=== PATIENT | female | born 1995 | race Caucasian/White ===

== ENCOUNTER 2022-06-08 02:03 | Outpatient (CLI) | payer BC, SELFPAY ==
[2022-06-08 14:52] LABS: Panorama Kit Sent via Fed Ex
[2022-06-08 15:03] LABS: Abs Immature Grans 0.05 10^3/uL (0.0-0.06); Absolute Basophil Count 0.01 10^3/uL (0.0-0.2); Absolute Eosinophil Count 0.05 10^3/uL (0.0-0.7); Absolute Lymphocyte Count 1.67 10^3/uL (1.2-3.4); Absolute Monocyte Count 0.44 10^3/uL (0.1-0.8); Absolute Neutrophil Count 5.97 10^3/uL (1.2-6.7); Basophils % 0.1; Eosinophils % 0.6; HCT 36.8 % (36.0-46.0); HGB 12.6 g/dL (11.2-15.7); Immature Grans % 0.6; Lymphocytes % 20.4; MCHC 34.2 % (32.0-36.0); MCV 85 fL (80-95); MPV 9.5 fL (8.0-11.0); Monocytes % 5.4; Neutrophils % 72.9; Platelet Count 304 10^3/uL (130-400); RBC 4.35 10^6/uL (3.93-5.22); RDW 12.5 % (11.7-14.6); RDW-SD 38.3 fL; WBC 8.19 10^3/uL (4.4-10.8)
[2022-06-08 15:08] LABS: Glucose,1 Hr (Glucola) 130 mg/dL (80-140)
[2022-06-09 09:44] LABS: Hepatitis C Ab w Rflx HCV PCR Negative (Negative)
[2022-06-09 09:51] LABS: HIV-1/2 Ag & Ab Screen Negative (Negative)
[2022-06-09 10:37] LABS: Hepatitis B Surface Ag Negative (Negative); Rubella IgG Ab (UVM) Positive (See Note); Varicella IgG Antibody Positive (See Note)
[2022-06-09 19:41] LABS: Syphilis IgG w/Reflex Nonreactive (Nonreactive)
[2022-07-03 15:04] LABS: Result Summary NEGATIVE; Specimen WB Whole Blood
== END 2022-06-08 02:04 | disposition home or self-care (01) ==
LOC: LBO 02:03
PROVIDERS: Advanced Practice Midwife; Visit Provider Advanced Practice Midwife
DX: Z34.82 Encounter for supervision of other normal pregnancy, second trimester
CPT/HCPCS: 36415; 81220; 81222; 82950; 86787; 86803; 86850; 86900; 86901; 87340; 87389; 84443; 85025; 86762; 86780

== ENCOUNTER 2022-06-08 17:19 | Outpatient (REF) | payer BC, SELFPAY ==
[2022-06-08 17:25] LABS: *AMPHETAMINES SCREEN URINE Negative (Negative); *BARBITURATES SCREEN URINE Negative (Negative); *BENZODIAZEPINES SCREEN URINE Negative (Negative); Cannabinoids THC Negative (Negative); Cocaine Screen,Urine Negative (Negative); METHADONE URINE SCREEN Negative (Negative); OPIATES URINE SCREEN Negative (Negative)
[2022-06-08 17:27] LABS: Tricyclic Antidepressants Negative (Negative)
[2022-06-10 12:20] LABS: Chlamydia Result Negative (Negative); GC Result Negative (Negative)
[2022-06-17 16:33] LABS: Buprenorphine Negative ng/mL (Cutoff: 5.0); Norbuprenorphine Negative ng/mL (Cutoff: 2.5)
== END 2022-06-08 17:20 | disposition home or self-care (01) ==
LOC: LBN 17:19
PROVIDERS: Visit Provider Advanced Practice Midwife
DX: Z34.91 Encounter for supervision of normal pregnancy, unspecified, first trimester (principal)
CPT/HCPCS: 80307; 80348; 87491; 87591; 87086

== ENCOUNTER 2022-09-04 02:33 | Outpatient (CLI) | payer BC, MEDICAID, SELFPAY ==
[2022-09-04 07:22] LABS: HCT 36.1 % (36.0-46.0); HGB 12.3 g/dL (11.2-15.7); MCHC 34.1 % (32.0-36.0); MCV 88 fL (80-95); MPV 9.5 fL (8.0-11.0); Platelet Count 283 10^3/uL (130-400); RDW 13.5 % (11.7-14.6); RDW-SD 43.7 fL; WBC 10.77 10^3/uL (4.4-10.8)
[2022-09-04 08:08] LABS: ALT 28 U/L (14-59); AST 19 U/L (15-37); Albumin 2.6 g/dL (3.4-5.0); Alkaline Phosphatase 84 U/L (46-116); Anion Gap 7.6 mmol/L (3-11); BUN 8 mg/dL (7-18); Bilirubin, Total 0.2 mg/dL (0.2-1.0); CO2 23.4 mmol/L (21.0-32.0); CREATININE 0.5 mg/dL (0.55-1.02); Calcium 8.7 mg/dL (8.5-10.1); Chloride 106 mmol/L (98-107); Estimated GFR 130.94 (mL/min/1.73m2); Glucose 110 mg/dL (74-106); LDH 173 U/L (81-234); Potassium 3.7 mmol/L (3.5-5.1); Sodium 137 mmol/L (136-145); Total Protein 6.4 g/dL (6.4-8.2); Uric Acid 3.1 mg/dL (2.6-6.0)
== END 2022-09-04 02:34 | disposition home or self-care (01) ==
LOC: LBO 02:33
PROVIDERS: Visit Provider Advanced Practice Midwife
DX: O16.2 Unspecified maternal hypertension, second trimester (principal); Z3A.26 26 weeks gestation of pregnancy
CPT/HCPCS: 36415; 80053; 85027; 83615; 84550

== ENCOUNTER 2022-09-04 09:27 | Outpatient (REF) | payer BC, MEDICAID, SELFPAY ==
[2022-09-04 09:46] LABS: Creatinine,Urine 101.17 mg/dL; PROTEIN 17.8 mg/dL (0.0-11.9)
[2022-09-04 09:53] LABS: Creatinine,24hr Ur 1.42 g/24hr (0.60-1.80); TOTAL PROTEIN,URINE TIMED 249.2 mg/24hr (0.0-149.1); Total Volume 1400 ml
== END 2022-09-04 09:28 | disposition home or self-care (01) ==
LOC: LBN 09:27
PROVIDERS: Visit Provider Advanced Practice Midwife
DX: O16.2 Unspecified maternal hypertension, second trimester (principal); Z3A.26 26 weeks gestation of pregnancy
CPT/HCPCS: 81050; 82570; 84155

== ENCOUNTER 2022-09-18 09:55 | Outpatient (REF) | payer BC, MEDICAID, SELFPAY ==
[2022-09-18 10:02] LABS: HCT 36.5 % (36.0-46.0); HGB 12.4 g/dL (11.2-15.7); MCH 29.9 pg (27.0-33.0); MCV 88 fL (80-95); MPV 9.5 fL (8.0-11.0); Platelet Count 270 10^3/uL (130-400); RBC 4.15 10^6/uL (3.93-5.22); RDW 13.5 % (11.7-14.6); RDW-SD 43.7 fL; WBC 9.48 10^3/uL (4.4-10.8)
[2022-09-18 10:19] LABS: Glucose,1 Hr (Glucola) 172 mg/dL (80-140)
== END 2022-09-18 09:56 | disposition home or self-care (01) ==
LOC: LBN 09:55
PROVIDERS: Advanced Practice Midwife; Visit Provider Advanced Practice Midwife
DX: Z34.93 Encounter for supervision of normal pregnancy, unspecified, third trimester (principal); Z3A.28 28 weeks gestation of pregnancy
CPT/HCPCS: 82950; 85027

== ENCOUNTER 2022-09-25 02:20 | Outpatient (CLI) | payer BC, MEDICAID, SELFPAY ==
[2022-09-25 11:31] LABS: HCT 37.7 % (36.0-46.0); HGB 12.8 g/dL (11.2-15.7); MCH 29.9 pg (27.0-33.0); MCV 88 fL (80-95); MPV 9.2 fL (8.0-11.0); Platelet Count 268 10^3/uL (130-400); RBC 4.28 10^6/uL (3.93-5.22); RDW 13.2 % (11.7-14.6); RDW-SD 42.5 fL; WBC 12.38 10^3/uL (4.4-10.8)
[2022-09-25 13:59] LABS: Glucose 1 Hour 203 mg/dL
[2022-09-25 15:34] LABS: Glucose 3 Hour 154 mg/dL
--- NOTE | 2022-10-02 11:01 | W.DIABETESNO ---
Date of service: 10/02/22 Time of Service: 11:01 Diabetes Note Reason for Visit: gdm NOTE: Met with Dimple and her today. She is 30 weeks and was recently dx with GDM. Blood sugar log in last week all within recommended ranges. Does have low blood sugars AM- often under 70 mg/dl. Diet log indicates irregular meal times, often skips lunch when working. 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 Reviewed macronutrient requirements for third trimester . Provided meal plans and provided contact information if needs further assistance. Time Spent in Nutritional Counseling and Treatment: 20
== END 2022-09-25 02:21 | disposition home or self-care (01) ==
LOC: LBO 02:20
PROVIDERS: Advanced Practice Midwife; Visit Provider Advanced Practice Midwife
DX: Z34.93 Encounter for supervision of normal pregnancy, unspecified, third trimester (principal); Z3A.29 29 weeks gestation of pregnancy
CPT/HCPCS: 36415; 82950; 85027; 82951

== ENCOUNTER 2022-10-13 00:32 | Outpatient (CLI) | payer MEDICAID, SELFPAY ==
--- NOTE | 2022-10-13 07:00 | DI.US_ITS ---
Exam(s) US OB MANNIE WEIGHT EXAM: US OB MANNIE WEIGHT CLINICAL HISTORY: growth and fluid volumE,SING UMB ART,HYPERTENSION,q27.0,o16.2. TECHNIQUE: Transabdominal obstetrical ultrasound was performed. COMPARISON: US POCUS EXAM from 05/02/2022 FINDINGS: There is a single viable intrauterine gestation with cardiac activity identified-161 bpm The fetus is presently in cephalic position . Amniotic fluid: There is a normal amount of amniotic fluid with an MANNIE of 13.5cm. Placental location: The placenta is posterior grade 2,with no evidence of placenta previa. Dating parameters place this at approximately 32 weeks and 3 days gestational age, implying CLAIRE of 12/05/2022. BPD measures 33 weeks and 2 days HC measures 32 weeks and 0 days AC measures 32 weeks and 4 days FL measures 31 weeks and 6 days Estimated weight is 1955 grams-4 pounds, 5 ounces Fetus is at the 50th percentile on the Hadlock scale. IMPRESSION:: Viable 3rd trimester gestation, as described above. DATA REPOSITORY:
== END 2022-11-15 10:17 ==
LOC: DI 00:33 → OBS 11-15 10:10
PROVIDERS: Visit Provider Advanced Practice Midwife
DX: O13.3 Gestational [pregnancy-induced] hypertension without significant proteinuria, third trimester (principal); Q27.0 Congenital absence and hypoplasia of umbilical artery
CPT/HCPCS: 76816

== ENCOUNTER 2022-10-26 09:55 | Outpatient (CLI) | payer MEDICAID, SELFPAY ==
[2022-10-26 10:06] VITALS: BP 137/95; PULSE 90; TEMP 36.9
[2022-10-26 10:24] VITALS: BP 137/95; PULSE 90
--- NOTE | 2022-10-26 10:39 | W.OBNST ---
Date of service: 10/26/22 Time of Service: 10:39 NST Evaluation Reason for NST Reasons for Nonstress Test: GESTATIONAL HYPERTENSION Gestational Age Gestational Age in Weeks and Days: 33 Weeks and 6Days Test and Monitor Explained Test/Monitor Explained: Test Explained, Monitor Explained and Patient Verbalized Understanding Vital Signs Blood Pressure: 137/95 Pulse: 90 Temperature: 98.4 F NST Information Date on Monitor: 10/26/22 Time on Monitor: 10:00 Date off Monitor: 10/26/22 Time off Monitor: 10:32 Total Time on Monitor: 32 NST Interventions: PO Hydration NST Evaluation Patient States Movement: Present FHR Baseline: 130 Variability: Moderate 6-25 bpm Accelerations: 15x15 Decelerations: None NST Results: Reactive Note Ultrasound Done: N/A. NST Note Note: HTN Labs drawn and pending NST Reviewed and Verified by: Laura Javier
[2022-10-26 10:40] VITALS: BP 137/95; PULSE 90; TEMP 36.9
[2022-10-26 11:05] LABS: HGB 12.6 g/dL (11.2-15.7); MCH 29.1 pg (27.0-33.0); MCHC 33.2 % (32.0-36.0); MCV 88 fL (80-95); MPV 10.3 fL (8.0-11.0); Platelet Count 232 10^3/uL (130-400); RBC 4.33 10^6/uL (3.93-5.22); RDW 13.1 % (11.7-14.6); RDW-SD 41.9 fL
[2022-10-26 11:07] VITALS: BP 130/86; PULSE 81
[2022-10-26 11:15] LABS: COMMENT (LAB VIEW ONLY) 58.38 mg/dL
[2022-10-26] MEDS: Acetaminophen 500 MG TAB 1000 MG PO (11:15)
[2022-10-26 11:21] LABS: ALT 20 U/L (14-59); AST 20 U/L (15-37); Albumin 2.4 g/dL (3.4-5.0); Alkaline Phosphatase 146 U/L (46-116); Anion Gap 6.9 mmol/L (3-11); BUN 8 mg/dL (7-18); Bilirubin, Total 0.2 mg/dL (0.2-1.0); CO2 25.1 mmol/L (21.0-32.0); CREATININE 0.7 mg/dL (0.55-1.02); Chloride 104 mmol/L (98-107); Estimated GFR 120.74 (mL/min/1.73m2); Glucose 78 mg/dL (74-106); Potassium 4.1 mmol/L (3.5-5.1); Sodium 136 mmol/L (136-145); Total Protein 6.4 g/dL (6.4-8.2); Uric Acid 3.8 mg/dL (2.6-6.0)
[2022-10-26 13:04] LABS: Hemoglobin A1C 5.1 % (<5.7)
== END 2022-10-26 11:55 | disposition home or self-care (01) ==
LOC: BCD 10:02 → OBS 10:05
PROVIDERS: Visit Provider Advanced Practice Midwife
DX: O16.3 Unspecified maternal hypertension, third trimester (principal); Z3A.33 33 weeks gestation of pregnancy
CPT/HCPCS: 36415; 80053; 85027; 59025; 82565; 83036; 84156; 84550

== ENCOUNTER 2022-10-30 10:09 | Outpatient (CLI) | payer MEDICAID, SELFPAY ==
--- NOTE | 2022-10-30 10:56 | W.OBNST ---
Date of service: 10/30/22 Time of Service: 10:56 NST Evaluation Reason for NST Reasons for Nonstress Test: OTHER, SEE COMMENT Reason for NST Other: Hypertension in 3rd trimester Gestational Age Gestational Age in Weeks and Days: 34 Weeks and 3Days Test and Monitor Explained Test/Monitor Explained: Test Explained, Monitor Explained and Patient Verbalized Understanding Urine Results Urine Protein: Negative Urine Ketones: Negative Urine Glucose: Negative Urine Blood: Negative NST Information Date on Monitor: 10/30/22 Time on Monitor: 10:00 Date off Monitor: 10/30/22 Time off Monitor: 10:31 Total Time on Monitor: 31 NST Interventions: None Contraction Frequency: Irritability NST Evaluation Patient States Movement: Present FHR Baseline: 135 Variability: Moderate 6-25 bpm Accelerations: 15x15 Decelerations: None NST Results: Reactive Note Ultrasound Done: N/A. NST Note NST Reviewed and Verified by: Laura Javier
== END 2022-10-30 10:40 | disposition home or self-care (01) ==
LOC: BCD 10:11 → OBS 10:20
PROVIDERS: Visit Provider Advanced Practice Midwife
DX: O16.3 Unspecified maternal hypertension, third trimester (principal); Z3A.33 33 weeks gestation of pregnancy
CPT/HCPCS: 59025

== ENCOUNTER 2022-11-08 03:48 | Outpatient (CLI) | payer MEDICAID, SELFPAY ==
[2022-11-08 08:48] VITALS: BP 131/84; PULSE 92
[2022-11-08 09:16] VITALS: BP 133/82; PULSE 80
[2022-11-08 09:23] VITALS: BP 131/84; PULSE 92; TEMP 36.4
--- NOTE | 2022-11-08 10:07 | W.OBNST ---
Date of service: 11/08/22 Time of Service: 10:07 NST Evaluation Reason for NST Reasons for Nonstress Test: GESTATIONAL HYPERTENSION Gestational Age Gestational Age in Weeks and Days: 35 Weeks and 5Days Test and Monitor Explained Test/Monitor Explained: Test Explained, Monitor Explained and Patient Verbalized Understanding Vital Signs Blood Pressure: 131/84 Pulse: 92 Temperature: 97.5 F NST Information Date on Monitor: 11/08/22 Time on Monitor: 08:47 Date off Monitor: 11/08/22 Time off Monitor: 09:22 Total Time on Monitor: 35 NST Interventions: None and Notify Provider Contraction Frequency: Occasional NST Evaluation Patient States Movement: Present FHR Baseline: 135 Variability: Moderate 6-25 bpm Accelerations: 15x15 Decelerations: None NST Results: Reactive Note Ultrasound Done: N/A. NST Note Note: Reactive NST. RTO 5 days for NST and BP check. Signs of preeeclampsia reviewed. NST Reviewed and Verified by: Shira Figueredo
[2022-11-08 10:08] VITALS: BP 131/84; PULSE 92; TEMP 36.4
== END 2022-11-08 09:45 | disposition home or self-care (01) ==
LOC: BCD 03:52 → OBS 08:45
PROVIDERS: Visit Provider Advanced Practice Midwife
DX: O13.3 Gestational [pregnancy-induced] hypertension without significant proteinuria, third trimester (principal); Z3A.35 35 weeks gestation of pregnancy
CPT/HCPCS: 59025

== ENCOUNTER 2022-11-14 08:54 | Outpatient (CLI) | payer MEDICAID, SELFPAY ==
[2022-11-14 15:22] VITALS: BP 139/90; PULSE 83; TEMP 36.4
[2022-11-14 15:33] VITALS: BP 139/90; PULSE 83
[2022-11-14 15:52] VITALS: BP 138/84; PULSE 80
[2022-11-14 16:06] LABS: HCT 37.2 % (36.0-46.0); HGB 12.4 g/dL (11.2-15.7); MCH 29.5 pg (27.0-33.0); MCHC 33.3 % (32.0-36.0); MCV 89 fL (80-95); MPV 10.6 fL (8.0-11.0); Platelet Count 232 10^3/uL (130-400); RDW 12.9 % (11.7-14.6); RDW-SD 41.6 fL
[2022-11-14 16:21] LABS: ALT 18 U/L (14-59); AST 17 U/L (15-37); Albumin 2.3 g/dL (3.4-5.0); Alkaline Phosphatase 172 U/L (46-116); Anion Gap 8.9 mmol/L (3-11); BUN 14 mg/dL (7-18); Bilirubin, Total 0.2 mg/dL (0.2-1.0); CO2 22.1 mmol/L (21.0-32.0); CREATININE 0.9 mg/dL (0.55-1.02); Calcium 8.4 mg/dL (8.5-10.1); Chloride 104 mmol/L (98-107); Glucose 157 mg/dL (74-106); Potassium 3.9 mmol/L (3.5-5.1); Sodium 135 mmol/L (136-145); Total Protein 6.4 g/dL (6.4-8.2); Uric Acid 4.4 mg/dL (2.6-6.0)
[2022-11-14 16:26] VITALS: BP 140/90; PULSE 85
[2022-11-14 16:31] LABS: PROTEIN 65.9 mg/dL
--- NOTE | 2022-11-14 16:49 | W.OBNST ---
Date of service: 11/14/22 Time of Service: 16:49 NST Evaluation Reason for NST Reasons for Nonstress Test: GESTATIONAL HYPERTENSION Gestational Age Gestational Age in Weeks and Days: 36 Weeks and 4Days Test and Monitor Explained Test/Monitor Explained: Test Explained, Monitor Explained and Patient Verbalized Understanding Vital Signs Blood Pressure: 139/90 Pulse: 83 Temperature: 97.5 F Urine Results Urine Protein: Positive Urine Ketones: Negative Urine Glucose: Negative Urine Blood: Negative NST Information Date on Monitor: 11/14/22 Time on Monitor: 15:20 Date off Monitor: 11/14/22 Time off Monitor: 15:54 Total Time on Monitor: 34 NST Interventions: PO Hydration Contraction Frequency: 0 NST Evaluation Patient States Movement: Present FHR Baseline: 130 Variability: Moderate 6-25 bpm Accelerations: 15x15 Decelerations: None NST Results: Reactive Note Ultrasound Done: Presentation Presentation Results: vertex low Coding for Presentation w/NST: Completed Exam. NST Note Note: NST due to gestational diabetes. BP 138/90 and 140/90. We discussed diagnosis of gestational hypertension. serum preeclampsia labs WNL. P/C ratio 0.40. IOL indicated and we discussed that. Consult with Dr Escalante about her status. Will start 24-hr urine and return in 2 days. Genie Amanda will be assuming care of the baby. NST Reviewed and Verified by: Shira Figueredo
[2022-11-14 16:50] VITALS: BP 139/90; PULSE 83; TEMP 36.4
== END 2022-11-14 17:00 | disposition home or self-care (01) ==
LOC: BCD 09:01 → OBS 15:14
PROVIDERS: Visit Provider Advanced Practice Midwife
DX: O13.3 Gestational [pregnancy-induced] hypertension without significant proteinuria, third trimester (principal); Z3A.36 36 weeks gestation of pregnancy; O24.410 Gestational diabetes mellitus in pregnancy, diet controlled
CPT/HCPCS: 80053; 85027; 59025; 82565; 84156; 84550

== ENCOUNTER 2022-11-15 12:42 | Inpatient (IN) | payer MEDICAID, SELFPAY ==
[2022-11-15] VITALS (27 sets, daily range): BP systolic 130–179; BP diastolic 77–124; PULSE 81–103; RESP 16; TEMP 36.3–37.2; O2SAT 98; BMI 34.5
--- NOTE | 2022-11-15 10:48 | W.PM.OBHPL1 ---
Date of service: 11/15/22 Time of Service: 10:48 Assessment and Plan Assessment and plan (1) premature rupture of membranes (PPROM) with onset of labor within 24 hours of rupture in third trimester, antepartum: Status: Acute Assessment and plan: A: 27 yo G1 @ 36+5 wks ROM confirmed with sterile spec exam GBS unknown and collected today Low risk for SD, moderate risk for PPH due to gHTN Category 1 tracing and favorable cvx, walker score=8 P: Pt desires to wait 6 hrs after PROM for spontaneous labor If no progression by 1500, will recommend pitocin IOL Dr. Schwartz available for consultation (2) Gestational hypertension affecting first : Status: Acute Assessment and plan: gHTN diagnosed recently Pt has started 24 hr urine collection interrupted by SROM this morning Mild range BP noted on admission, pt denies HORNE, visual trouble or RUQ pain Fetus AGA at 32 wk interval growth scan Admission CMP & CBC are WNL (3) Gestational diabetes: Status: Acute Assessment and plan: GDM diet controlled throughout third trimester random glucose on admit 109 Will monitor postprandials until delivery (4) Single umbilical artery: Status: Acute Assessment and plan: Growth scan at 32 wks for 50th percentile, MANNIE 13.5 Category 1 tracing on admission OB-HPI Labor/Delivery History of Present Illness Reason for Visit: SROM at 36+5 wks Chief Complaint: Suspected Rupture of Membranes , Associated Signs and Symptoms of Suspected ROM: clear fluids leaking from vaginal since 0900 today. No pain, or nausea, vomiting, or diarrhea. No bleeding. Mild cramping now and then.. CLAIRE Calculator Estimated Delivery Date Method Current WG Current Estimate 12/08/22 Ultrasound #1 36w 5d Other Estimates 11/28/22 LMP (Uncertain) 38w 1d 12/08/22 Ultrasound #2 36w 5d History of Present Expected Delivery Route/Plan - CNM FOB - Juan Pena BB - Vince Pena GDM @ 29 wks, diet controlled Specific Issues/Plan 1. BMI 30 - early GTT 130 2. Panorama- Low risk, CF neg, declines SMA 3. Genetics & MFM referral d/t family hx of huntingtons, FOB's fam hx polycystic kidney disease (father & 2 Aunts kidney transplants) - normal US 4. TSH due to BMI, depression and pt's mother w/thyroid disease, result=1.50 5. 2 vessel cord - US at 32 weeks EFW in 50th percentile, MANNIE 13.5 6. Baseline 24 hour urine to be done as of 08/18 - WNL @ 250 6a. Gestational Hypertension- Twice weekly NST, IOL at 37-38 weeks 7. 28 wk 1 HR 172, 3h-71/203/203/154- GDM @ 29 wks: testing blood sugar QID Assessment: History Reviewed & Current Informed Consent Informed Consent: Induction of Labor, Risk,Benefits,Alternatives Discussed and Other (GBS unknown, discussed prophylaxis for PPROM) Review of Systems Narrative: ROS completed and noncontributory other then HPI PFSH All Active Problems (Updated 11/15/22 @ 13:59 by Laura Javier) premature rupture of membranes (PPROM) with onset of labor within 24 hours of rupture in third trimester, antepartum (Acute) Gestational hypertension affecting first (Acute) Gestational diabetes (Acute) Single umbilical artery (Acute) Nystagmus (Acute) BMI 30.0-30.9,adult (Acute) (Acute) Depression (Chronic) Medical History (Updated 11/15/22 @ 13:59 by Laura Javier) Elevated blood pressure affecting in third trimester, antepartum FHx: Evangelista's disease Patient's father tested and had some level on blood work, patient also has a level, agrees to genetics referral Polycystic kidney Father of baby has fam HX, his Father and 2 Aunts have polycystic kidney and have had kidney transplant. FOB has not been tested Family History (Updated 06/08/22 @ 13:26 by Shira Patel CNM) Maternal Grandfather Asthma Maternal Grandmother Cancer Ovarian cancer diagnosed age 76 Prostate cancer Paternal Grandfather Cancer Brain Depression Father Depression Heart disease AFIB Paternal Uncle Depression Paternal Aunt Depression Brother Nystagmus Mother Nystagmus Thyroid disease SVT (supraventricular tachycardia) Self Nystagmus Social History Smoking/Tobacco Use Status: Never Smoking risk assessment performed?: Yes Alcohol Intake: never Drug use: Never History History 1 Para 0 Hx # Term Pregnancies 0 Multiple births 0 Hx # Pregnancies 0 Ectopic pregnancies 0 AB induced 0 Hx Number of Living Children 0 AB spontaneous 0 Meds Allergies and Home Medications Allergies Allergy/AdvReac Type Severity Reaction Status Date / Time No Known Allergies Allergy Verified 10/30/22 09:39 Home Medications Medication Instructions Recorded Confirmed Type fluoxetine 20 mg capsule 20 mg PO DAILY 04/07/22 11/15/22 History prenat.vits,debby,[id number] 1 tab PO DAILY 04/07/22 11/15/22 History blood sugar diagnostic (FreeStyle #100 ea 09/25/22 11/15/22 Rx Lite Strips) blood-glucose meter (FreeStyle #1 ea 09/25/22 11/15/22 Rx Lite Meter kit) lancets 28 gauge (FreeStyle #100 ea 09/25/22 11/15/22 Rx Lancets) Exam Physical Exam Vital Signs Reviewed: Yes Narrative: mild range diastolic BP noted Constitutional Constitutional: no acute distress, average body habitus and cooperative Detailed Labor and Delivery Exam Dilation: 3.5 Effacement (%): 80 station: -2 Cervix position: posterior Consistency: soft WALKER Score(Cervical Ripeness Score): 8 Amniotic Membrane Status: Ruptured Amniotic Fluid: Clear Pooling: Positive Nitrazine: Positive Ferning: Present Contraction Frequency(min): irreg Contraction Intensity: Mild Fetus A Heart Rate Baseline: 135 Monitor Accelerations: Present Monitor Decelerations: None Variability: Moderate (6-25 BPM) Categories: Category I Est. Weight: 6 lb 6.294 oz Est. Weight: 2900 gms Date of Membrane Rupture: 11/15/22 Time of Membrane Rupture: 09:00 HEENT Exam HEENT Exam: Normal Neck Exam Neck Exam: Normal Chest/Brest/Axilla Exam Chest Exam: Normal Breast Exam Breast Exam: Not Done Respiratory Exam Respiratory Exam: Normal Cardiovascular Exam Cardiovascular Exam: Normal Abdominal Exam Abdominal Exam: Normal (Gravid, nontender) Rectal Exam Rectal Exam: Normal Exam Exam: Normal (SSE done to confirm ROM) Extremities Exam Extremities Exam: Normal Back/Spine/Pelvis Exam Back Exam: Normal Pelvis Adequate: Yes Skin Exam Skin Exam: Normal Neurological Exam Neurological Exam: Normal Psychiatric Exam Psychiatric Exam: Normal Results Results Group Beta Strep: Done-Result Unknown Blood Type: O+ Rubella Status: Immune Varicella Immunity: Immune Risk Assessment Risk for Shoulder Dystocia Historical/Initial OB: POSITIVE FOR: Pre- BMI>30; NEGATIVE FOR: Pelvic Abnormality, Previous Shoulder Dystocia or Previous Macrosomia Increased Risk?: No Date/Initial: 06/08/22 Delivery Plan @ 36wks: Risk for Pre-Eclampsia Date Initiated/Initials: 06/08/22 Yes, if one or more: NEGATIVE FOR: Hx Pre-E/Gest HTN, Chronic HTN, Multiple Gestation, Pre-gestational DM, Renal Disease, Systemic Lupus or APA Syndrome Yes, if 2 or more: POSITIVE FOR: Nulliparity; NEGATIVE FOR: Age>= 35 yrs, >10yr btwn pregnancies, BMI>30, ethinicty, Mother/Sister w/ Pre-E or Previous IUGR Risk for Post- Hemorrhage Initial: NEGATIVE FOR: Multiple Gestation, Previous PPH, Known Clotting Deficiency, Grand Multiparity or Anticoagulation At Risk?: Yes (due to gestational HTN, possible need for IOL for PROM) Counseled re: Active Management: Yes Risks Reviewed Risks Reviewed Upon Admission: Yes
[2022-11-15 11:13] LABS: HCT 38.9 % (36.0-46.0); HGB 13.1 g/dL (11.2-15.7); MCH 29.4 pg (27.0-33.0); MCHC 33.7 % (32.0-36.0); MCV 87 fL (80-95); MPV 10.8 fL (8.0-11.0); Platelet Count 232 10^3/uL (130-400); RBC 4.45 10^6/uL (3.93-5.22); RDW 12.9 % (11.7-14.6); RDW-SD 40.7 fL; WBC 8.52 10^3/uL (4.4-10.8)
[2022-11-15 11:38] LABS: ALT 19 U/L (14-59); AST 20 U/L (15-37); Albumin 2.4 g/dL (3.4-5.0); Alkaline Phosphatase 173 U/L (46-116); Anion Gap 9.7 mmol/L (3-11); BUN 11 mg/dL (7-18); Bilirubin, Total 0.2 mg/dL (0.2-1.0); CO2 22.3 mmol/L (21.0-32.0); CREATININE 0.9 mg/dL (0.55-1.02); Chloride 104 mmol/L (98-107); Glucose 109 mg/dL (74-106); Potassium 3.8 mmol/L (3.5-5.1); Sodium 136 mmol/L (136-145); Total Protein 6.6 g/dL (6.4-8.2)
[2022-11-15] MEDS: Penicillin G POT. 5,000,000 UNITS in Normal Saline 100 ML 200 UNITS IVPB (12:00)
[2022-11-15] MEDS: Penicillin G POT. 3,000,000 UNITS in Normal Saline 50 ML 100 UNITS IVPB ×2 (16:03→19:48)
[2022-11-15] MEDS: Oxytocin/Normal Saline 30 UNIT/500 ML BAG 2 UNITS IV (16:25)
--- NOTE | 2022-11-15 17:41 | ANES.PREOP_ITS ---
General Info Date of Service Date Performed: 11/15/22 Height: 5 ft 3 in Weight: 88.451 kg Body Mass Index (BMI): 34.5 Meds Allergies and Home Medications Allergies Allergy/AdvReac Type Severity Reaction Status Date / Time No Known Allergies Allergy Verified 10/30/22 09:39 Home Medication Medication Instructions Recorded fluoxetine 20 mg capsule 20 mg PO DAILY 04/07/22 prenat.vits,debby,[id number] 1 tab PO DAILY 04/07/22 blood sugar diagnostic (FreeStyle #100 ea 09/25/22 Lite Strips) blood-glucose meter (FreeStyle #1 ea 09/25/22 Lite Meter kit) lancets 28 gauge (FreeStyle #100 ea 09/25/22 Lancets) Current Visit Medications: Current Medications Generic Name Dose Route Start Last Admin Trade Name Freq PRN Reason Stop Dose Admin Sodium Chloride 500 mls @ 0 mls/hr 11/15/22 10:46 Saline 500ml Bag IV PRN PRN As Directed Penicillin G Potassium 3,000, 50 mls @ 100 mls/hr 11/15/22 16:00 11/15/22 16:50 000 units/ Sodium Chloride IVPB Infused Q4H ULI Infusion Ringer's Solution 1,000 mls @ 125 mls/hr 11/15/22 15:30 IV INFUSION ULI Oxytocin/Sodium Chloride 30 unit in 500 mls @ 2 mls/hr 11/15/22 15:30 11/15/22 17:25 Pitocin/Normal Saline IV 4 milliunits/min INFUSION ULI 4 mls/hr Titration Protocol 2 MILLIUNITS/MIN IV Miscellaneous Supplies 1 each 11/15/22 11:00 Iv Access IV DIRECTED ULI Sodium Chloride 0 ml 11/15/22 10:46 Normal Saline Flush 10 Ml Syr IVP PRN PRN PFSH Active Problems Active Problems: Problem Status Onset Code premature rupture of membranes (PPROM) with onset of labor within 24 hours of rupture in third trimester, antepartum O42.013 Gestational hypertension affecting first O13.9 Gestational diabetes O24.419 Single umbilical artery Q27.0 Nystagmus H55.00 BMI 30.0-30.9,adult Z68.30 Z34.90 Depression F32.A Medical History Medical History (Updated 11/15/22 @ 13:59 by Laura Javier) Elevated blood pressure affecting in third trimester, antepartum FHx: Colbert's disease Patient's father tested and had some level on blood work, patient also has a level, agrees to genetics referral Polycystic kidney Father of baby has fam HX, his Father and 2 Aunts have polycystic kidney and have had kidney transplant. FOB has not been tested Tobacco Smoking/Tobacco Use Status: Never Alcohol Alcohol Intake: never Substance Use Substance use: Never Prental History History 1 Para 0 Hx # Term Pregnancies 0 Multiple births 0 Hx # Pregnancies 0 Ectopic pregnancies 0 AB induced 0 Hx Number of Living Children 0 AB spontaneous 0 Vital Signs and Lab Results Vital Signs Most Recent Vital Signs in EMR: Most Recent Vital Signs Temp Pulse Resp BP 36.7 C 90 16 179/124 H 11/15/22 15:15 11/15/22 17:34 11/15/22 13:18 11/15/22 17:34 Lab Results 11/15/22 11:03 11/15/22 11:03 Blood Type / Crossmatch: Patient ABO/Rh O Positive 11/15/22 Antibody Screen NEGATIVE 11/15/22 Complete Blood Count: White Blood Count 8.52 10^3/uL (4.4-10.8) 11/15/22 11:03 Red Blood Count 4.45 10^6/uL (3.93-5.22) 11/15/22 11:03 Hemoglobin 13.1 g/dL (11.2-15.7) 11/15/22 11:03 Hematocrit 38.9 % (36.0-46.0) 11/15/22 11:03 Platelet Count 232 10^3/uL (130-400) 11/15/22 11:03 Complete Metabolic Panel: Sodium 136 mmol/L (136-145) 11/15/22 11:03 Potassium 3.8 mmol/L (3.5-5.1) 11/15/22 11:03 Chloride 104 mmol/L (98-107) 11/15/22 11:03 Carbon Dioxide 22.3 mmol/L (21.0-32.0) 11/15/22 11:03 BUN 11 mg/dL (7-18) 11/15/22 11:03 Creatinine 0.9 mg/dL (0.55-1.02) 11/15/22 11:03 Est GFR (CKD-EPI 2020) 89.30 (mL/min/1.73m2) 11/15/22 11:03 Calcium 9.0 mg/dL (8.5-10.1) 11/15/22 11:03 Albumin 2.4 g/dL (3.4-5.0) L 11/15/22 11:03 Glucose 109 mg/dL (74-106) H 11/15/22 11:03 Hemoglobin A1c 5.1 % (<5.7) 10/26/22 10:53 Liver Function Panel: Alanine Aminotransferase (ALT/SGPT) 19 U/L (14-59) 11/15/22 11: 03 Aspartate Amino Transf (AST/SGOT) 20 U/L (15-37) 11/15/22 11:03 Coagulation Panel: No Data to Display Cardiac Panel: No Data to Display Arterial Blood Gas: No Data to Display Venous Blood Gas: No Data to Display Pancreas Panel: No Data to Display Thyroid Panel: No Data to Display Infectious Disease: No Data to Display Blood Cultures: No Data to Display Toxicology Panel: No Data to Display Panel: No Data to Display Anesthesia Assessment and Plan Anesthesia History Personal History: No History of Anesthesia Complications Family History: No Family History of Anesthesia Complications Exercise Tolerance Exercise Tolerance: Metabolic Equivalents>4 Cardiac & Pulmonary Exam Cardiac Exam: Normal S1/S2 Heart Sounds Pulmonary Exam: Clear Bilateral Breath Sounds Implantable Cardiac Device Does patient have a Pacemaker or an ICD?: No Airway Exam Known Difficult Airway: No Mallampati Class: 3 Mouth Opening: Narrow (< 3cm) Thyromental Distance: Greater than 3 cm Neck Range of Motion: Full ROM Neck Circumference: Normal Teeth Condition: Normal Dentition ASA Classification ASA Score: ASA 2 Emergency Case?: No NPO Status NPO Status: Full Stomach Status Status: Confirmed Anesthesia Plan Resuscitation Status: Full Code Anesthesia Technique: Epidural Anesthesia Airway Planned: Natural Airway Pain Management: Intrathecal Analgesia and Epidural Monitors Used: Standard Monitors Preoperative Comments:: 27 yo G1 female with PROM and induction of labor at 36 wks. Currently 4 cm, 90%, -2. Would like to discuss labor analgesia. Sig PMHx: gest HTN, gest DM (diet controlled), nystagmus, depression ( fluoxetine), never smoker/EtOH. Discussed risks, benefits, and alternatives of labor analgesia. Consent not signed, but risks and procedures explained, will sign at time of procedure if it is requested.
--- NOTE | 2022-11-15 19:04 | PGE_ITS ---
Date of service: 11/15/22 Time of Service: 19:04 Informed Consent Informed Consent: Induction of Labor and Risk,Benefits,Alternatives Discussed Pelvic Exam Dilation: 7 Effacement (%): 100 station: -1 Cervix Position: mid Consistency: soft Contractions Monitor Mode: External Contraction Frequency(min): q2-3 Intensity: Moderate/Strong Fetus A Monitor: External (US) Heart Rate Baseline: 130 Variability: Moderate (6-25 BPM) Categories: Category I Accelerations: Present Decelerations: None Amniotic Membrane Status: Ruptured Assessment and Plan Assessment and plan (1) premature rupture of membranes (PPROM) with onset of labor within 24 hours of rupture in third trimester, antepartum: Status: Acute Assessment and plan: A: IOL for PPROM in progress Active labor, category 1 tracing gHTN, stable P: Dr. Schwartz updated on pt status Comfort measures as pt desires Anticipate Objective Abnormal lab results 11/15/22 Range/Units 11:03 Glucose 109 H (74-106) mg/dL Alkaline Phosphatase 173 H (46-116) U/L Albumin 2.4 L (3.4-5.0) g/dL Temp Pulse Resp BP 97.4 F L 90 16 138/94 H 11/15/22 18:15 11/15/22 17:34 11/15/22 13:18 11/15/22 17:45 Laboratory Results WBC 8.52 10^3/uL (4.4-10.8) 11/15/22 11:03 RBC 4.45 10^6/uL (3.93-5.22) 11/15/22 11:03 Hgb 13.1 g/dL (11.2-15.7) 11/15/22 11:03 Hct 38.9 % (36.0-46.0) 11/15/22 11:03 MCV 87 fL (80-95) 11/15/22 11:03 MCH 29.4 pg (27.0-33.0) 11/15/22 11:03 MCHC 33.7 % (32.0-36.0) 11/15/22 11:03 RDW 12.9 % (11.7-14.6) 11/15/22 11:03 Plt Count 232 10^3/uL (130-400) 11/15/22 11:03 MPV 10.8 fL (8.0-11.0) 11/15/22 11:03 Sodium 136 mmol/L (136-145) 11/15/22 11:03 Potassium 3.8 mmol/L (3.5-5.1) 11/15/22 11:03 Chloride 104 mmol/L (98-107) 11/15/22 11:03 Carbon Dioxide 22.3 mmol/L (21.0-32.0) 11/15/22 11:03 Anion Gap 9.7 mmol/L (3-11) 11/15/22 11:03 BUN 11 mg/dL (7-18) 11/15/22 11:03 Creatinine 0.9 mg/dL (0.55-1.02) 11/15/22 11:03 Est GFR (CKD-EPI 2020) 89.30 (mL/min/1.73m2) 11/15/22 11:03 Glucose 109 mg/dL (74-106) H 11/15/22 11:03 Glucose 1 Hr Postprand Cancelled 11/15/22 11:37 Calcium 9.0 mg/dL (8.5-10.1) 11/15/22 11:03 Total Bilirubin 0.2 mg/dL (0.2-1.0) 11/15/22 11:03 AST 20 U/L (15-37) 11/15/22 11:03 ALT 19 U/L (14-59) 11/15/22 11:03 Alkaline Phosphatase 173 U/L (46-116) H 11/15/22 11:03 Total Protein 6.6 g/dL (6.4-8.2) 11/15/22 11:03 Albumin 2.4 g/dL (3.4-5.0) L 11/15/22 11:03 Patient ABO/Rh O Positive 11/15/22 11:03 Antibody Screen NEGATIVE 11/15/22 11:03 Vital Signs Reviewed: Yes Objective Narrative Objective Narrative: STAFF [employer] came to unit to answer pt's questions about regional anesthesia BP remains consistently mild range, labs nml FHT category 1 Active labor, pitocin at 4 mu/min Pt manages contractions best while standing at bedside Subjective Interval history since last seen: Contractions are painful and frequent, large emesis x1, scant spotting on post void wipe, tried nitrous but it isn't helpful. Does not want anything else for pain right now. Interventions Induction Indication: Premature Rupture of Membranes, Type of Induction: Pitocin, Results Hemoglobin/Hematocrit: Hgb 13.1 g/dL (11.2-15.7) 11/15/22 11:03 Hct 38.9 % (36.0-46.0) 11/15/22 11:03 Abnormal Lab Findings: Abnormal Labs 11/15/22 11:03 Glucose 109 H Alkaline Phosphatase 173 H Albumin 2.4 L
[2022-11-15] MEDS: Oxytocin/Normal Saline 30 UNIT/500 ML BAG 95 UNITS IV (20:45)
[2022-11-15] MEDS: miSOPROStol 200 MCG TAB 600 MCG SL (21:20)
--- NOTE | 2022-11-15 21:31 | W.OBDELIVERY ---
Date of service: 11/15/22 Time of Service: 21:31 OB Labor/ Delivery Information Baby A Delivery Delivery Method: Spontaneaous Presentation: Cephalic Cephalic Position: Vertex Vertex Position: Right Occipital Anterior Cord Description-Baby A: 2 Vessels Amniotic Fluid: Clear Estimated Blood Loss: 500 ml Delivery Outcome: Liveborn Transferred: Remains with Mother Providers Nurse Alumni Coordinator: Laura Javier Nurse: Meghana Conn Nurse: Shelbi Oconnor Labor/Delivery Information Group Beta Strep: Done-Result Unknown Antibiotics Administered: Yes Number of Doses of Antibiotics: 3 Rubella Status: Immune Blood Type: O+ Varicella Immunity: Immune Medication in Delivery: pitocin induction then bolus Maternal Complications: None Shoulder Dystocia: No Note: Second stage huddle held after pt began to have involuntary urges to bear down while standing at bedside, pit infusion @ 4mu/min and external monitor not recording FHT reliably. Pt assisted to bed, FSE placed, pt spontaneously turned to LLP and began pushing efforts, FHT 120's baseline with moderate variability throughout 2nd stage. Excellent maternal efforts resulted in of vigorous male over attempted intact perineum, handed to mother's arms immediately. pitocin bolus begun, brisk vaginal bleeding noted, cord clamped and cut by LUIS and Vicky placenta delivered intact with 2 VC (known), vigorous fundal massage done by RN which controlled bleeding well, perineal laceration repaired with 3.0 Vicryl using 20% benzocaine spray for analgesia, small right introital hematoma noted, additional small hymenal laceration on right side repaired with 3 stitches of Vicryl. Fundus remains firm, miso 600 mcg PO given as precaution with EBL @ 500 ml, no clots found on vaginal sweep, counts correct, strong family bonding observed, apgars 8/9, weight 3195 gms. Stages of Labor Onset of Labor Date: 11/15/22 Onset of Labor Time: 09:00 Complete Dilatation Date: 11/15/22 Complete Dilatation Time: 20:00 Labor - Stage 1 Duration: 11 hours and 0 minutes ROM Baby A: 11/15/22 ROM Baby A: 09:00 Delivery Date-Baby A: 11/15/22 Delivery Time-Baby A: 20:43 Labor Stage 2 Duration: 43 minutes Placenta Delivery Date-Baby A: 11/15/22 Placenta Delivery Time-Baby A: 20:48 Labor-Stage 3 Duration: 5 minutes Total Length of Labor-Baby A: 11 hours and 43 minutes Baby A Gender: Male Gestational Status: Late (34-36.6 wks) weight: 7 lb 0.7 oz Weight Comment: 3195 gms Score-1 Minute Interval(Baby A) Heart Rate-1 minute: 100 BPM or Greater Respiratory Effort- 1 minute: Spontaneous/Strong Cry Muscle Tone-1 minute: Minimal Flexion/Extension Reflex Response-1 minute: Prompt Response Color-1 minute: Bluish Hands or Feet Score-5 Minute Interval(Baby A) Heart Rate- 5 minute: 100 BPM or Greater Respiratory Effort-5 minute: Spontaneous/Strong Cry Muscle Tone-5 minute: Active Movement Reflex Response-5 minute: Prompt Response Color-5 minute: Bluish Hands or Feet Procedure Procedures: Cord Blood Collection and Scalp Electrode Placement Interventions Repair of Laceration
[2022-11-15] MEDS: Hamamelis Leaf/Glycerin 100 EACH BOX PR (23:12)
[2022-11-15] MEDS: Dibucaine 1% 28 GM TUBE TP (23:12)
[2022-11-16 00:30] VITALS: BP 139/86; PULSE 85; TEMP 37.1
[2022-11-16 04:29] VITALS: BP 146/82; PULSE 85; TEMP 37.2
[2022-11-16 08:30] VITALS: BP 143/93; PULSE 85; RESP 14; TEMP 36.9
[2022-11-16] MEDS: FLUoxetine 20 MG CAP PO (11:17)
[2022-11-16 15:00] VITALS: BP 121/80; PULSE 87; RESP 16; TEMP 36.5; O2SAT 97
[2022-11-16] MEDS: Ibuprofen 600 MG TAB PO (15:15)
[2022-11-16] MEDS: Acetaminophen 325 MG TAB 650 MG PO (15:15)
--- NOTE | 2022-11-16 18:21 | OBPPV_ITS ---
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 [place] dizzy on first trip to the bathroom but this has not happened again. Describes nml lochia rubra, minimal vaginal and rectal soreness. Patient comments: No complaints, Pain well controlled, Tolerating diet and Flatus present Patient's Mood: tired, relieved [place] baby status: Doing well, Nursing well, Supplemental feeding going well, Rooming in and Strong Bonding Observed [place] feeding status: Breast and formula feeding Narrative: Pt gave formula one time today due to concern for baby being hungry, has pumped x2 with a few drops produced. Exam Physical Exam Vital signs: Temp Pulse Resp BP Pulse Ox 97.7 F 87 16 121/80 97 11/16/22 15:00 11/16/22 15:00 11/16/22 15:00 11/16/22 15:00 11/16/22 15:00 Vital Signs Reviewed: Yes Constitutional Constitutional: no acute distress, obese and cooperative HEENT Exam HEENT Exam: Normal (complexion is somewhat pale) Neck Exam Neck Exam: Normal Breast Exam Bilateral: Breast Exam: Normal and Soft Nipple Exam: Normal and Uninjured Respiratory Exam Respiratory Exam: Normal Cardiovascular Exam Cardiovascular Exam: Normal Abdominal Exam Abdomen: Other (soft, nontender) Fundal Exam Fundus: Below Umbilicus and Firm Rectal Exam Rectal Exam: Normal Exam Perineum: Edematous and Repair Intact Extremities Exam Extremity Exam: Normal, Full ROM and Warm to Touch Back/Spine/Pelvis Exam Back Exam: Normal Skin Exam Skin Exam: Normal Neurological Exam Neurological Exam: Normal Psychiatric Exam Psychiatric Exam: Normal Results Hemoglobin/Hematocrit: Hgb 13.1 g/dL (11.2-15.7) 11/15/22 11:03 Hct 38.9 % (36.0-46.0) 11/15/22 11:03 Abnormal Lab Findings: Abnormal Labs 11/15/22 11:03 Glucose 109 H Alkaline Phosphatase 173 H Albumin 2.4 L
[2022-11-17 00:05] VITALS: BP 120/64; PULSE 72; TEMP 36.5
[2022-11-17] MEDS: Acetaminophen 325 MG TAB 650 MG PO ×2 (03:01→15:30)
[2022-11-17 06:56] LABS: HCT 31.3 % (36.0-46.0); HGB 10.2 g/dL (11.2-15.7); MCH 29.1 pg (27.0-33.0); MCHC 32.6 % (32.0-36.0); MCV 89 fL (80-95); MPV 10.2 fL (8.0-11.0); Platelet Count 225 10^3/uL (130-400); RDW 13.3 % (11.7-14.6); RDW-SD 43.7 fL; WBC 10.46 10^3/uL (4.4-10.8)
[2022-11-17 08:00] VITALS: BP 126/83; PULSE 73; RESP 12; TEMP 36.7
[2022-11-17] MEDS: FLUoxetine 20 MG CAP PO (08:12)
--- NOTE | 2022-11-17 12:36 | OBPPV_ITS ---
Date of service: 11/17/22 Time of Service: 12:36 Assessment and Plan Assessment and plan (1) Normal vaginal delivery: Status: Acute Assessment and plan: A: Nml PPD#2 Infant is nursing better Mild anemia, hgb 10.2 P: Resume PNV's with Fe after first BM Planning for discharge to home tomorrow Infant circumcision this afternoon (2) Depression: Status: Chronic Subjective Subjective Patient comments: No complaints, Pain well controlled, Tolerating diet and Flatus present Patient's Mood: feeling better [place] baby status: Doing well, Nursing well, Rooming in and Strong Bonding Observed feeding status: Breast and formula feeding Exam Physical Exam Vital signs: Temp Pulse Resp BP Pulse Ox 98.1 F 73 12 126/83 97 11/17/22 08:00 11/17/22 08:00 11/17/22 08:00 11/17/22 08:00 11/16/22 15:00 Vital Signs Reviewed: Yes Constitutional Constitutional: no acute distress, obese and cooperative HEENT Exam HEENT Exam: Normal (complexion is somewhat pale) Neck Exam Neck Exam: Normal Breast Exam Bilateral: Breast Exam: Normal and Soft Respiratory Exam Respiratory Exam: Normal Cardiovascular Exam Cardiovascular Exam: Normal Abdominal Exam Abdomen: Other (soft, nontender) Fundal Exam Fundus: Below Umbilicus and Firm Rectal Exam Rectal Exam: Normal Exam Perineum: Edematous and Repair Intact Extremities Exam Extremity Exam: Normal, Full ROM and Warm to Touch Back/Spine/Pelvis Exam Back Exam: Normal Skin Exam Skin Exam: Normal Neurological Exam Neurological Exam: Normal Psychiatric Exam Psychiatric Exam: Normal Results Hemoglobin/Hematocrit: Hgb 10.2 g/dL (11.2-15.7) L D 11/17/22 06:42 Hct 31.3 % (36.0-46.0) L 11/17/22 06:42 Abnormal Lab Findings: Abnormal Labs 11/15/22 11/17/22 11:03 06:42 RBC 3.50 L Hgb 10.2 L D Hct 31.3 L Glucose 109 H Alkaline Phosphatase 173 H Albumin 2.4 L
[2022-11-17 15:37] VITALS: BP 129/80; PULSE 93; RESP 16; TEMP 36.6
[2022-11-18 09:00] VITALS: BP 146/89; PULSE 91; RESP 18; TEMP 36.6
--- NOTE | 2022-11-18 09:02 | W.PM.OBPNV1 ---
Date of service: 11/18/22 Time of Service: 09:02 Assessment and Plan Assessment and plan (1) Normal vaginal delivery: Status: Acute Assessment and plan: A: Nml PPD#3 Feeding remains problematic P: Will discharge to home when baby is released Continue providing infant feeding support F/up @ 2 & 6 wks, declines BCM Resume PNV's with iron Written instructions reviewed & given to pt (2) Depression: Status: Chronic Assessment and plan: Reviewed with pt the difference between nml baby blues and PPD Pt affirms she is taking her sertraline 25 mg daily and this is the correct dose at this time Discussed possibly increasing sertraline dose if she feels increasing sadness or anxiety Subjective Subjective Patient comments: No complaints, Pain well controlled, Tolerating diet and Bowel Movement Patient's Mood: tired baby status: Doing well, Supplemental feeding going well, Rooming in and Strong Bonding Observed feeding status: Breast and formula feeding Exam Physical Exam Vital signs: Temp Pulse Resp BP Pulse Ox 97.9 F 93 H 16 129/80 97 11/17/22 15:37 11/17/22 15:37 11/17/22 15:37 11/17/22 15:37 11/16/22 15:00 Vital Signs Reviewed: Yes Constitutional Constitutional: no acute distress, obese and cooperative HEENT Exam HEENT Exam: Normal Neck Exam Neck Exam: Normal Breast Exam Bilateral: Breast Exam: Normal and Soft Nipple Exam: Normal and Uninjured Comments: pumping is yielding only drops colostrum Respiratory Exam Respiratory Exam: Normal Cardiovascular Exam Cardiovascular Exam: Normal Abdominal Exam Abdomen: Other (soft, nontender) Fundal Exam Fundus: Below Umbilicus and Firm Rectal Exam Rectal Exam: Normal Exam Perineum: Hemorrhoids, Normal and Repair Intact Extremities Exam Extremity Exam: Normal, Full ROM and Warm to Touch Back/Spine/Pelvis Exam Back Exam: Normal Skin Exam Skin Exam: Normal Neurological Exam Neurological Exam: Normal Psychiatric Exam Psychiatric Exam: Normal (affect is a bit flat) Results Hemoglobin/Hematocrit: Hgb 10.2 g/dL (11.2-15.7) L D 11/17/22 06:42 Hct 31.3 % (36.0-46.0) L 11/17/22 06:42
[2022-11-18] MEDS: FLUoxetine 20 MG CAP PO (09:09)
[2022-11-18] MEDS: Acetaminophen 325 MG TAB 650 MG PO ×2 (09:15→16:41)
[2022-11-18 15:30] VITALS: BP 134/82; PULSE 82; RESP 18
[2022-11-18] MEDS: Ibuprofen 600 MG TAB PO (16:41)
--- NOTE | 2022-11-18 18:36 | DSE_ITS ---
Date of service: 11/18/22 Time of Service: 17:00 DS: Diagnosis Discharge Diagnosis (1) Normal vaginal delivery: Status: Acute (2) Depression: Status: Chronic Discharge Plan Disposition Patient Disposition: Home Condition: Good Discharge Details Reason For Visit: SROM at 36+5 wks Admit Date/Time: 11/15/22 12:42 Admit Provider: Laura Javier Attending Provider: Laura Javier Primary Care Provider: None,None Hospital Course Hospital Course: , nml course, discharge on day #3 Home Meds and New Rx's Prescriptions: No Action fluoxetine 20 mg capsule 20 mg PO DAILY prenat.vits,debby,[id number] Tablet 1 tab PO DAILY Discharge Instructions Additional Instructions: Please keep your 2 and 6 week service center manager appointments, call for any concerns or questions. Stand Alone Forms: BC Instructions, BC Post Vaginal Deliver Activity:: Activity as Tolerated Equipment/Supplies:: No Equipment Needed Diet:: Normal Diet Discharge Data Discharge Date/Time-TO BE ENTERED AT DEPARTURE: 11/18/22 17:00 OB:DS Summary Summary Vaginal Delivery Method: Spontaneaous Episiotomy Description: None Laceration Description: Perineal Laceration Extension: Second Degree Contraception Discussed Contraception Discussed: Yes Contraceptive Plan: Not planning to use, Gender-Baby A: Male weight: 7 lb 0.7 oz Status at Discharge Functional status at discharge: independent ambulation Overall status at discharge: patient is progressing back to baseline Mental Status: mental status grossly normal Speech and Movement: speech and movement normal and speech clear Mood: congruent mood Affect: blunted Exam Physical Exam Vital signs: Temp Pulse Resp BP Pulse Ox 97.9 F 82 18 134/82 97 11/18/22 09:00 11/18/22 15:30 11/18/22 15:30 11/18/22 15:30 11/16/22 15:00 Vital Signs Reviewed: Yes Constitutional Constitutional: no acute distress, obese and cooperative HEENT Exam HEENT Exam: Normal Neck Exam Neck Exam: Normal Breast Exam Bilateral: Breast Exam: Normal and Soft Comments: pumping is yielding only drops colostrum Respiratory Exam Respiratory Exam: Normal Cardiovascular Exam Cardiovascular Exam: Normal Abdominal Exam Abdomen: Other (soft, nontender) Fundal Exam Fundus: Below Umbilicus and Firm Rectal Exam Rectal Exam: Normal Exam Perineum: Hemorrhoids, Normal and Repair Intact Extremities Exam Extremity Exam: Normal, Full ROM and Warm to Touch Back/Spine/Pelvis Exam Back Exam: Normal Skin Exam Skin Exam: Normal Neurological Exam Neurological Exam: Normal Psychiatric Exam Psychiatric Exam: Normal (affect is a bit flat) PFSH All Active Problems (Updated 11/16/22 @ 18:26 by Laura Javier) Normal vaginal delivery (Acute) Nystagmus (Acute) BMI 30.0-30.9,adult (Acute) Depression (Chronic) Medical History (Updated 11/16/22 @ 18:26 by Laura Javier) Elevated blood pressure affecting in third trimester, antepartum FHx: Kelley's disease Patient's father tested and had some level on blood work, patient also has a level, agrees to genetics referral Gestational diabetes Gestational hypertension affecting first Polycystic kidney Father of baby has fam HX, his Father and 2 Aunts have polycystic kidney and have had kidney transplant. FOB has not been tested premature rupture of membranes (PPROM) with onset of labor within 24 hours of rupture in third trimester, antepartum Single umbilical artery Family History (Updated 06/08/22 @ 13:26 by Shira Patel CNM) Maternal Grandfather Asthma Maternal Grandmother Cancer Ovarian cancer diagnosed age 76 Prostate cancer Paternal Grandfather Cancer Brain Depression Father Depression Heart disease AFIB Paternal Uncle Depression Paternal Aunt Depression Brother Nystagmus Mother Nystagmus Thyroid disease SVT (supraventricular tachycardia) Self Nystagmus Social History Smoking/Tobacco Use Status: Never Smoking risk assessment performed?: Yes Alcohol Intake: never Drug use: Never History History 1 Para 0 Hx # Term Pregnancies 0 Multiple births 0 Hx # Pregnancies 0 Ectopic pregnancies 0 AB induced 0 Hx Number of Living Children 0 AB spontaneous 0 DS: Data Vitals/I&O Vitals and I&O: Vital Signs Temperature 97.9 F 11/18/22 09:00 Temperature Source Oral 11/18/22 09:00 Pulse 82 11/18/22 15:30 Pulse Rhythm Regular 11/18/22 09:00 Respiratory Rate 18 11/18/22 15:30 Blood Pressure 134/82 11/18/22 15:30 Blood Pressure Mean 99 11/18/22 15:30 Pulse Oximetry 97 11/16/22 15:00 Oxygen Delivery Method Room Air 11/15/22 12:02 Oxygen Flow Rate 0 11/15/22 12:02 Pain Level 2 11/18/22 16:41 Comment Pt just got back to bed from bathroom. 11/18/22 09:00 Intake & Output 11/17/22 11/18/22 11/18/22 23:59 11:59 23:59 Other: Urine Color Yellow
== END 2022-11-18 17:00 | disposition home or self-care (01) | DRG 806 ==
LOC: OBS 14:05 → BCD 11-16 16:26 → OBS 11-16 16:26
PROVIDERS: Admitting Provider Advanced Practice Midwife; Visit Provider Advanced Practice Midwife
DX: O42.013 Preterm premature rupture of membranes, onset of labor within 24 hours of rupture, third trimester (principal); O71.7 Obstetric hematoma of pelvis; Z37.0 Single live birth; Z3A.36 36 weeks gestation of pregnancy; O13.4 Gestational [pregnancy-induced] hypertension without significant proteinuria, complicating childbirth; O24.420 Gestational diabetes mellitus in childbirth, diet controlled; O69.5XX0 Labor and delivery complicated by vascular lesion of cord, not applicable or unspecified; O99.344 Other mental disorders complicating childbirth; F32.A Depression, unspecified; O70.0 First degree perineal laceration during delivery
CPT/HCPCS: 36415; 80053; 85027; 86850; 86900; 86901; 82947; 87081; J2540

== ENCOUNTER 2023-01-03 03:45 | Outpatient (CLI) | payer MEDICAID, SELFPAY ==
[2023-01-03 11:20] LABS: GTT Comment See Comments
== END 2023-01-03 03:46 | disposition home or self-care (01) ==
LOC: LBO 03:45
PROVIDERS: Visit Provider Advanced Practice Midwife
DX: O24.419 Gestational diabetes mellitus in pregnancy, unspecified control (principal); Z3A.00 Weeks of gestation of pregnancy not specified
CPT/HCPCS: 36415; 82951

== ENCOUNTER 2023-09-11 12:20 | Outpatient (REF) | payer MEDICAID, SELFPAY | END 2023-09-11 12:21 | disposition home or self-care (01) | LOC: LBN 12:20 | PROVIDERS: Visit Provider Advanced Practice Midwife | DX: N93.8 Other specified abnormal uterine and vaginal bleeding (principal) | CPT/HCPCS: 87480; 87510; 87660 ==

== ENCOUNTER 2023-09-11 14:29 | Outpatient (CLI) | payer MEDICAID, SELFPAY ==
[2023-09-11 12:28] LABS: TSH (W/Ref FT4) 1.24 uIU/mL (0.36-3.74)
[2023-09-11 12:56] LABS: Lab Add On Test DONE
[2023-09-11 22:11] LABS: FSH 7.1 mIU/mL (See Note); LH 11.8 mIU/mL (See Note)
[2023-09-14 10:59] LABS: Dehydroepiandrosterone (DHEA) 2.8 ng/mL (<13)
[2023-09-14 19:30] LABS: 17-Hydroxyprogesterone 62 ng/dL
[2023-09-19 13:00] LABS: Testosterone, Free 1.53 ng/dL (<0.13-1.06); Testosterone, Total 40 ng/dL (8-60)
== END 2023-09-11 14:30 | disposition home or self-care (01) ==
LOC: LBO 09-20 14:29
PROVIDERS: Visit Provider Advanced Practice Midwife
DX: N93.8 Other specified abnormal uterine and vaginal bleeding (principal); E03.9 Hypothyroidism, unspecified
CPT/HCPCS: 36415; 83498; 84402; 84403; 82626; 83001; 83002; 84443

== ENCOUNTER → 2023-09-14 01:03 | Outpatient (CLI) | payer MEDICAID, SELFPAY ==
--- NOTE | 2023-09-14 07:41 | DI.US_ITS ---
Exam(s) US PELVIS TRANSVAGINAL EXAM: US PELVIS TRANSVAGINAL CLINICAL HISTORY: irregular menses,dysfunctional uterine bleeding,n93.8 TECHNIQUE: Ultrasound of the pelvis was performed both transabdominal and transvaginal. COMPARISON: US US OB MANNIE WEIGHT from 10/13/2022 US POCUS EXAM from 11/14/2022 FINDINGS: UTERUS: Measures 8 cm length x 4 cm AP x 5.5 cm wide. There are no uterine fibroids. Endometrial thickness measures 13-14 mm. Appears homogeneous. There is no fluid in the endometrial canal. CERVIX: There are no obvious nabothian cysts. RIGHT OVARY: Measures 3.8 x 2.1 x 1.7 cm No significant cysts nor masses evident in the right ovary. LEFT OVARY: Measures 2.5 x 3.6 x 2.9 cm There are 2 separate findings in the left ovary in addition to sub cm follicular cysts. These findin gs exhibits mixed echogenicity including hyperechoic regions. Suspicious for possible dermoids. The larger of these 2 measures 3.3 x 2.4 x 2.5 cm. CUL-DE-SAC: No free fluid evident. IMPRESSION: 1. Endometrium thickness is 13-14 mm choose upper normal limits for this relatively young age group. 2. Right ovary unremarkable. 3. Two echogenic structures in the left ovary as described above. Possible dermoids. Recommend foll ow-up CT scan. DATA REPOSITORY:
== END ==
PROVIDERS: Visit Provider Advanced Practice Midwife
DX: N93.8 Other specified abnormal uterine and vaginal bleeding (principal); N83.8 Other noninflammatory disorders of ovary, fallopian tube and broad ligament; N83.292 Other ovarian cyst, left side; R93.89 Abnormal findings on diagnostic imaging of other specified body structures
CPT/HCPCS: 76830; 76856

== ENCOUNTER 2023-09-24 06:02 | Outpatient (CLI) | payer MEDICAID, SELFPAY ==
[2023-09-26 09:29] LABS: Antimullerian Hormone 5.7 ng/mL (0.89-9.9)
== END 2023-09-24 06:03 | disposition home or self-care (01) ==
LOC: LBO 06:02
PROVIDERS: Visit Provider Advanced Practice Midwife
DX: N93.8 Other specified abnormal uterine and vaginal bleeding (principal); Z31.9 Encounter for procreative management, unspecified
CPT/HCPCS: 36415; 83520

== ENCOUNTER → 2023-12-20 00:06 | Outpatient (CLI) | payer MEDICAID, SELFPAY ==
--- NOTE | 2023-12-20 10:15 | DI.US_ITS ---
Exam(s) US PELVIS TRANSVAGINAL EXAM: US PELVIS TRANSVAGINAL CLINICAL HISTORY: re-check ovary, lt ovarian cyst, N83.202 TECHNIQUE: Transabdominal and transvaginal imaging was performed using standard protocol. COMPARISON: US POCUS EXAM from 11/14/2022 US US PELVIS TRANSVAGINAL from 09/14/2023 FINDINGS: transabdominal images are limited by lack of urinary bladder distention. UTERUS: Uterus is retroflexed and measures 7.2 x 4.2 x 5.4 cm. Endometrium: 11 mm , similar to prior. Question of some hemorrhagic material within the endometrial which is included in the measurement. Myometrium: Unremarkable. Cervix: Unremarkable. OVARIES: Right: Cyst or mass: None. Left: Cyst or mass: Stable size and appearance of mixed echogenicity left ovarian lesion. There are hyperechoic components which may represent fat within a dermoid. No calcification seen. DOPPLER: Color: Symmetric and uniform flow to both ovaries. No hyperemia. CUL-DE-SAC: Free fluid: None. IMPRESSION: 1. Mildly thickened endometrial stripe. 2. No change in size or appearance left ovarian lesion with hyperechoic regions suspicious for dermoi d. DATA REPOSITORY:
== END ==
PROVIDERS: Visit Provider Obstetrics & Gynecology
DX: N83.202 Unspecified ovarian cyst, left side (principal)
CPT/HCPCS: 76830; 76856

== ENCOUNTER 2024-11-10 16:24 | Outpatient (REF) | payer MEDICAID, SELFPAY ==
[2024-11-10 17:38] LABS: Lab Add On Test DONE
[2024-11-10 17:59] LABS: TSH (W/Ref FT4) 1.26 uIU/mL (0.36-3.74)
[2024-11-10 18:11] LABS: ALT 22 U/L (14-59); AST 14 U/L (15-37); Albumin 3.4 g/dL (3.4-5.0); Alkaline Phosphatase 74 U/L (46-116); Anion Gap 10.1 mmol/L (3-11); BUN 10 mg/dL (7-18); Bilirubin, Total 0.2 mg/dL (0.2-1.0); CO2 25.9 mmol/L (21.0-32.0); CREATININE 0.7 mg/dL (0.55-1.02); Calcium 8.9 mg/dL (8.5-10.1); Chloride 103 mmol/L (98-107); Estimated GFR 119.24 (mL/min/1.73m2); Glucose 137 mg/dL (74-106); Potassium 3.6 mmol/L (3.5-5.1); Sodium 139 mmol/L (136-145); Total Protein 7.1 g/dL (6.4-8.2)
== END 2024-11-10 16:25 | disposition home or self-care (01) ==
LOC: LBO 16:24
PROVIDERS: Visit Provider Advanced Practice Midwife
DX: E06.3 Autoimmune thyroiditis (principal); Z87.59 Personal history of other complications of pregnancy, childbirth and the puerperium; Z86.32 Personal history of gestational diabetes
CPT/HCPCS: 36415; 80053; 84443

== ENCOUNTER 2024-12-16 03:10 | Outpatient (CLI) | payer MEDICAID, SELFPAY ==
[2024-12-16 16:18] LABS: Abs Immature Grans 0.04 10^3/uL (0.0-0.06); HCT 38.5 % (36.0-46.0); HGB 13.1 g/dL (11.2-15.7); Immature Grans % 0.4 %; MCH 28.7 pg (27.0-33.0); MCHC 34.0 % (32.0-36.0); MCV 84 fL (80-95); MPV 9.9 fL (8.0-11.0); Platelet Count 317 10^3/uL (130-400); RBC 4.56 10^6/uL (3.93-5.22); RDW 13.2 % (11.7-14.6); RDW-SD 41.1 fL; WBC 10.53 10^3/uL (4.4-10.8)
[2024-12-16 16:39] LABS: Hemoglobin A1C 5.1 % (<5.7)
[2024-12-16 20:31] LABS: ALT 49 U/L (14-59); AST 21 U/L (15-37); Albumin 3.2 g/dL (3.4-5.0); Alkaline Phosphatase 68 U/L (46-116); Anion Gap 10.0 mmol/L (3-11); BUN 6 mg/dL (7-18); Bilirubin, Total 0.2 mg/dL (0.2-1.0); CO2 23.0 mmol/L (21.0-32.0); Calcium 8.6 mg/dL (8.5-10.1); Chloride 102 mmol/L (98-107); Estimated GFR 136.46 (mL/min/1.73m2); Glucose 134 mg/dL (74-106); Potassium 3.7 mmol/L (3.5-5.1); Sodium 135 mmol/L (136-145); TSH (W/Ref FT4) 0.27 uIU/mL (0.36-3.74); Total Protein 6.6 g/dL (6.4-8.2)
[2024-12-17 18:44] LABS: HIV-1/2 Ag & Ab Screen Negative (Negative)
[2024-12-17 18:49] LABS: Hepatitis C Ab w Rflx HCV PCR Negative (Negative)
[2024-12-18 10:05] LABS: Rubella IgG Ab (UVM) Positive (See Note)
[2024-12-19 18:28] LABS: Syphilis IgG w/Reflex Nonreactive (Nonreactive)
== END 2024-12-16 03:11 | disposition home or self-care (01) ==
LOC: LBO 03:11
PROVIDERS: Advanced Practice Midwife; Visit Provider Advanced Practice Midwife
DX: Z34.91 Encounter for supervision of normal pregnancy, unspecified, first trimester (principal); E06.3 Autoimmune thyroiditis
CPT/HCPCS: 36415; 80053; 86787; 86803; 86850; 86900; 86901; 87340; 87389; 83036; 84439; 84443; 85025; 86762; 86780

== ENCOUNTER 2024-12-16 15:19 | Outpatient (REF) | payer MEDICAID, SELFPAY ==
[2024-12-16 16:11] LABS: Lab Add On Test DONE
[2024-12-16 17:23] LABS: PROTEIN 22.3 mg/dL; Prot/Crea Ur Ratio 0.07
[2024-12-17 11:44] LABS: Chlamydia Result Negative (Negative); GC Result Negative (Negative)
== END 2024-12-16 15:20 | disposition home or self-care (01) ==
LOC: LBN 15:19
PROVIDERS: Visit Provider Advanced Practice Midwife
DX: Z87.59 Personal history of other complications of pregnancy, childbirth and the puerperium (principal); Z34.91 Encounter for supervision of normal pregnancy, unspecified, first trimester
CPT/HCPCS: 87491; 87591; 82565; 84156; 87086

== ENCOUNTER 2025-01-13 14:47 | Outpatient (CLI) | payer MEDICAID, SELFPAY ==
[2025-01-13 16:20] LABS: T4 15.9 ug/dL (4.7-13.3); TSH 0.35 uIU/mL (0.36-3.74)
== END 2025-01-13 14:48 | disposition home or self-care (01) ==
LOC: LBO 14:50
PROVIDERS: Visit Provider Internal Medicine Endocrinology, Diabetes & Metabolism
DX: E03.9 Hypothyroidism, unspecified (principal); E06.3 Autoimmune thyroiditis; O90.5 Postpartum thyroiditis; Z83.49 Family history of other endocrine, nutritional and metabolic diseases
CPT/HCPCS: 36415; 84479; 84436; 84443

== ENCOUNTER 2025-02-10 16:08 | Outpatient (CLI) | payer MEDICAID, SELFPAY ==
--- NOTE | 2025-02-10 06:45 | DI.US_ITS ---
Exam(s) US OB 2-3 TRIMESTER EXAM: US OB 2-3 TRIMESTER CLINICAL HISTORY: anatomy survey,z33.1. TECHNIQUE: Transabdominal obstetrical ultrasound performed. COMPARISON: US POCUS EXAM from 12/01/2024 FINDINGS: Number of fetuses: 1 position: VARIED Placental location: POSTERIOR No evidence of previa. BIOMETRIC DATA: BPD: 4.9cm, 20weeks 6days HC: 18.4cm, 20weeks 5days AC: 15.28cm, 20weeks 3days FL: 3.32cm, 20weeks 3days Cisterna magna: 5mm Cerebellum: 1.85cm Lateral ventricle: 7.3 EFW: 357.08g, 0.8lb, 65.3% Composite Age: 20weeks 4days CLAIRE: 06/26/2025 Heart Rate: 150bpm Amniotic fluid : Amount of fluid is visually within normal limits. ANATOMICAL SURVEY: Four-chambered heart: Unremarkable. LVOT: Unremarkable. RVOT: Unremarkable. Left-sided stomach: Unremarkable. urinary bladder: Unremarkable. Bilateral kidneys: Unremarkable. Three-vessel cord: Unremarkable. Cord insertion: Unremarkable. Posterior fossa:Unremarkable. ventricles: Unremarkable. nose: Unremarkable. lips: Unremarkable. palate: Unremarkable. spine: Unremarkable. Two arms and two legs: Unremarkable. IMPRESSION: 1. Single live intrauterine gestation with ultrasound composite age of 20 weeks 4 days. 2. Normal anatomic survey. DATA REPOSITORY:
== END 2025-02-10 16:28 ==
LOC: DI 16:08
PROVIDERS: PCP Nurse Practitioner; Visit Provider Advanced Practice Midwife
DX: Z34.82 Encounter for supervision of other normal pregnancy, second trimester (principal); Z3A.20 20 weeks gestation of pregnancy
CPT/HCPCS: 76805

== ENCOUNTER 2025-04-10 03:41 | Outpatient (CLI) | payer MEDICAID, SELFPAY ==
[2025-04-10 08:41] LABS: HCT 34.0 % (36.0-46.0); HGB 11.2 g/dL (11.2-15.7); MCH 28.6 pg (27.0-33.0); MCHC 32.9 % (32.0-36.0); MCV 87 fL (80-95); MPV 9.4 fL (8.0-11.0); Platelet Count 269 10^3/uL (130-400); RBC 3.91 10^6/uL (3.93-5.22); RDW 13.3 % (11.7-14.6); RDW-SD 41.9 fL; WBC 8.99 10^3/uL (4.4-10.8)
[2025-04-10 12:30] LABS: TSH (W/Ref FT4) 0.38 uIU/mL (0.36-3.74)
== END 2025-04-10 03:42 | disposition home or self-care (01) ==
LOC: LBO 03:41
PROVIDERS: PCP Nurse Practitioner; Visit Provider Advanced Practice Midwife
DX: Z86.32 Personal history of gestational diabetes (principal); Z33.1 Pregnant state, incidental; E06.3 Autoimmune thyroiditis
CPT/HCPCS: 36415; 85027; 82951; 84443

== ENCOUNTER 2025-04-15 06:26 | Outpatient (CLI) | payer MEDICAID, SELFPAY ==
[2025-04-15 07:16] VITALS: BP 115/74; PULSE 82; TEMP 36.6
[2025-04-15 07:34] VITALS: BP 115/74; PULSE 82
[2025-04-15 09:48] LABS: Glucose 100 mg/dL (Negative)
[2025-04-15 10:02] LABS: C & S Indicated? No; RBC 0-2 HPF (0-2)
--- NOTE | 2025-04-15 11:14 | W.OBNST ---
Date of service: 04/15/25 Time of Service: 11:14 NST Evaluation Reason for NST Reasons for Nonstress Test: OTHER, SEE COMMENT Reason for NST Other: LLQ pain Gestational Age Gestational Age in Weeks and Days: 29 Weeks and 2Days Test and Monitor Explained Test/Monitor Explained: Test Explained, Monitor Explained and Patient Verbalized Understanding Vital Signs Blood Pressure: 115/74 Pulse: 82 Temperature: 97.9 F Urine Results Urine Ketones: Positive Urine Blood: Negative NST Information Date on Monitor: 04/15/25 Time on Monitor: 07:16 Date off Monitor: 04/15/25 Time off Monitor: 08:38 Total Time on Monitor: 82 NST Interventions: PO Hydration Contraction Frequency: Occasional NST Evaluation Patient States Movement: Present FHR Baseline: 135 Variability: Moderate 6-25 bpm Accelerations: 15x15 Decelerations: None NST Results: Reactive Note Ultrasound Done: N/A. NST Note Note: Pt reported LLQ pain at 6 out of 10 on pain scale, resolved prior to arrival at unit. NST reactive, urine dip negative, pt ate breakfast without emesis Discharged and will f/up as scheduled and prn NST Reviewed and Verified by: Laura Javier
[2025-04-15 11:16] VITALS: BP 115/74; PULSE 82; TEMP 36.6
== END 2025-04-15 10:46 ==
LOC: BCD 06:27 → OBS 07:28
PROVIDERS: PCP Nurse Practitioner; Visit Provider Advanced Practice Midwife
DX: O99.891 Other specified diseases and conditions complicating pregnancy (principal); R10.32 Left lower quadrant pain; Z3A.29 29 weeks gestation of pregnancy
CPT/HCPCS: 59025; 81003; 81015

== ENCOUNTER 2025-06-05 14:38 | Outpatient (REF) | payer MEDICAID, SELFPAY | END 2025-06-05 14:39 | disposition home or self-care (01) | LOC: LBN 14:38 | PROVIDERS: PCP Nurse Practitioner; Visit Provider Advanced Practice Midwife | DX: Z34.93 Encounter for supervision of normal pregnancy, unspecified, third trimester (principal) | CPT/HCPCS: 87081 ==

== ENCOUNTER 2025-06-05 14:58 | Outpatient (CLI) | payer MEDICAID, SELFPAY ==
[2025-06-05 15:21] VITALS: BP 120/79; PULSE 85
[2025-06-05 15:31] VITALS: BP 128/79; PULSE 83
[2025-06-05 15:47] VITALS: BP 128/79; PULSE 83; TEMP 36.9
--- NOTE | 2025-06-05 16:49 | W.OBNST ---
Date of service: 06/05/25 Time of Service: 16:49 NST Evaluation Reason for NST Reasons for Nonstress Test: OTHER, SEE COMMENT Reason for NST Other: tachycardia in office Gestational Age Gestational Age in Weeks and Days: 36 Weeks and 4Days Test and Monitor Explained Test/Monitor Explained: Test Explained, Monitor Explained and Patient Verbalized Understanding Vital Signs Blood Pressure: 128/79 Pulse: 83 Temperature: 98.4 F NST Information Date on Monitor: 06/05/25 Time on Monitor: 15:06 Date off Monitor: 06/05/25 Time off Monitor: 15:43 Total Time on Monitor: 37 NST Interventions: None NST Evaluation Patient States Movement: Present FHR Baseline: 135 Variability: Moderate 6-25 bpm Accelerations: 15x15 Decelerations: None NST Results: Reactive Note Ultrasound Done: N/A. NST Note Note: Dimple was in for appt and FHR 170-190. Reactive NST. 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 NST Reviewed and Verified by: Shira Figueredo
[2025-06-05 16:50] VITALS: BP 128/79; PULSE 83; TEMP 36.9
== END 2025-06-05 15:50 ==
LOC: BCD 15:00 → OBS 15:18
PROVIDERS: PCP Nurse Practitioner; Visit Provider Advanced Practice Midwife
DX: O36.8331 Maternal care for abnormalities of the fetal heart rate or rhythm, third trimester, fetus 1 (principal); Z3A.36 36 weeks gestation of pregnancy
CPT/HCPCS: 59025